=== PATIENT | male | born 1965 | race Caucasian/White ===

== ENCOUNTER 2016-08-27 12:34 | Emergency (ER) | payer BC ==
[~2016-08-27] VITALS: Ht 175.3 cm; Wt 66.5 kg
[2016-08-27 14:41] LABS: HEMATOCRIT 44.1 % (38.0-50.0); MCH 32.4 PG (29.0-34.0); MCHC 35.1 G/DL (30.0-36.0); MCV 92.3 FL (86-99); MEAN PLAT.VOLUME 8.8 uM^3 (9.0-12.4); PLATELET COUNT 249 K/uL (156-360); RBC DIS.WIDTH-CV 11.8 % (11.8-14.6); RBC DIS.WIDTH-SD 40.4 % (39-53); RED BLOOD COUNT 4.78 M/uL (4.00-5.50); WHITE BLOOD COUNT 11.8 K/uL (4.1-10.2)
[2016-08-27 14:49] LABS: CHLORIDE 105 mEq/L (99-109); SODIUM 137 mEq/L (136-147)
[2016-08-27 14:50] LABS: GLUCOSE 143 mg/dL (70-99)
[2016-08-27 14:52] LABS: ANION GAP 7 MEQ/L (2-14)
[2016-08-27 14:55] LABS: UREA NITROGEN (BUN) 7 mg/dL (9-23)
[2016-08-27 14:59] LABS: GFR ESTIMATE (CALCULATED) > 59 mL/min/
[2016-08-27 15:07] LABS: ADD MIUA? YES; BILIRUBIN NEGATIVE; BLOOD SMALL; COLOR YELLOW ((YELLOW)); GLUCOSE (STRIP) NEGATIVE; KETONES 5; LEUKOCYTES NEGATIVE; NITRITE NEGATIVE; PROTEIN (STRIP) NEGATIVE; SPECIFIC GRAVITY 1.005 (1.000-1.030); UROBILINOGEN 0.2 MG/DL (0.2-1.0)
[2016-08-27 15:13] LABS: BACTERIA RARE /HPF; EPITHELIAL CELLS NONE SEEN /HPF; MUCUS NONE SEEN /LPF; RED BLOOD CELLS 0-5 /HPF (0-5); UNCLASSIFIED CRYSTALS 1+ /HPF; WHITE BLOOD CELLS 0-5 /HPF (0-5)
[2016-08-27 15:17] LABS: ADD MEDTOX COMMENT Y; AMPHETAMINE NEGATIVE (500 ng/mL); BARBITURATES NEGATIVE (200 ng/mL); BENZODIAZEPINES NEGATIVE (150 ng/mL); COCAINE PRESUMPTIVE POSITIVE (150 ng/mL); INTERNAL CONTROLS VALID? YES; METHADONE NEGATIVE (200 ng/mL); METHAMPHETAMINE NEGATIVE (500 ng/mL); OPIATES (MORPHINE) NEGATIVE (100 ng/mL); OXYCODONE NEGATIVE (100 ng/mL); PHENCYCLIDINE NEGATIVE (25 ng/mL); PROPOXYPHENE NEGATIVE (300 ng/mL); THC CANNABINOIDS NEGATIVE (50 ng/mL); TRICYCLIC ANTIDEPRESSANTS NEGATIVE (300 ng/mL)
[2016-08-27] MEDS ORDERED: TRAZODONE HCL50 MG PO (15:23)
[2016-08-27] MEDS ORDERED: CLONIDINE HCL0.1 MG PO (15:23)
[2016-08-27] MEDS ORDERED: ZOFRAN ODT4 MG PO (15:24)
[2016-08-27 15:33] VITALS: BP 145/104
== END 2016-08-27 15:33 | disposition home or self-care (01) ==
LOC: EME 12:34
PROVIDERS: Nurse Practitioner Family
DX: F11.23 Opioid dependence with withdrawal (principal); F17.200 Nicotine dependence, unspecified, uncomplicated
CPT/HCPCS: 80048; 81003; 84999; 85027; 99281; 99284